=== PATIENT | female | born 1950 | race Caucasian/White ===

== ENCOUNTER → 2017-05-05 | Day surgery (SDC) | payer MEDICARE ==
[~2017-05-05] MED LIST: ATROPINE SULFATE 1% OPHT SOLN 2 ML BTL LEFT EYE ONE; DEXAMETHASONE SOD PHOS 4 MG/ML VIAL ONE; EPINEPHrine HCL (1:1000) 1 MG/ML VIAL ONE; HYALURONIDASE/LIDOCAINE/BUPIVACAINE 11 ML SYR TL ONE; NEOMYCIN/POLYMYXIN/DEXAMETHASONE OPTH OINT 3.5 GM TUBE ONE; PHENYLEPHRINE HCL 2.5 % OPTH SOLN 15 ML BTL ONE; PROPOFOL 200 MG/20 ML AMP IV ONE; SODIUM CHLORIDE 0.9% INJ 10 ML ONE; TETRACAINE 0.5% OPTH SOLN 15 ML BTL ONE; TROPICAMIDE 1% OPHT SOLN 15 ML BTL ONE; ceFAZolin INJ 1,000 MG VIAL ONE
--- NOTE | 2017-05-11 07:57 | MP ---
cc: RONALD TYSON MD DATE OF SURGERY 05/05/2017 DATE OF 1950 PREOPERATIVE DIAGNOSIS Epiretinal membrane left eye POSTOPERATIVE DIAGNOSIS Epiretinal membrane left eye PROCEDURE Pars plana vitrectomy, membrane peeling left eye. ANESTHESIA MAC SURGEON Anushka Tyson MD COMPLICATIONS None PROCEDURE IN DETAIL After informed consent was obtained, the patient was brought to the operating room, placed under brief anesthesia with propofol. 10 cc of 50/50 mixture of 0.75% Marcaine and 2% lidocaine was placed in a modified [place] lid block as well as peribulbar injection. The patient was then prepared and draped in usual sterile fashion. A wire lid speculum was placed in the patient's left eye. 23-gauge vitrectomy cannulas were then placed in the lower temporal, superotemporal and superonasal quadrants 3 mm posterior to the corneoscleral limbus. Infusion cannula was placed lower temporally. A core vitrectomy was then performed. The vitrectomy is carried out as far as possible to vitreous base. Attention was then turned to the posterior pole where there was an epiretinal membrane covering the surface of the macula. It was carefully peeled off the macula with intraocular forceps. The same was then done for the internal limiting membrane. Careful indirect ophthalmoscopy with scleral depression was then performed and no peripheral retinal breaks were noted. The three vitrectomy cannulas were then removed. Subconjunctival injections of dexamethasone and Ancef were placed. An Atropine drop, Maxitrol ointment and a patch shield were then applied. The patient tolerated the procedure well. There were no complications. She will follow up tomorrow in our [facility] office. Ronald Tyson MD TAB/DJL /6:44 PM /7:45 AM
== END | disposition home or self-care (01) ==
LOC: ESDC 13:38
PROVIDERS: ATTEND Ophthalmology Retina Specialist
DX: H35.372 Puckering of macula, left eye (principal)
CPT/HCPCS: 00145; 67041; J0171; J0690; J1100